=== PATIENT | female | born 1945 | race Caucasian/White ===

== ENCOUNTER 2021-02-12 16:09 | Emergency (ER) | payer MEDICARE, MEDICAID ==
--- NOTE | 2021-02-12 16:15 | EDM.PDOC ---
ED HPI GENERAL MEDICAL PROBLEM - General Chief Complaint: General Stated Complaint: AMBULANCE Time Seen by Provider: 02/12/21 16:33 Source of Information: Reports: Patient History Limitations: Reports: No Limitations - History of Present Illness INITIAL COMMENTS - FREE TEXT/NARRATIVE: 75 y/o F c/o feeling light headed and nauseous since this morning. She states the feeling is worse when walking. She states she walked to the [facility] twice today to try an be seen but was unable to get in. Once she arrived in the ER she developed sudden chest pressure 8/10 nonradiating. Denies fever, cough, chills, drugs, etoh, db, abd pn, recent trauma, extremity pain, vision prob, diff swallowing, constipation, diff voiding. Onset: Today, Sudden Duration: Hour(s): Location: Reports: Head Improves with: Reports: None Worsens with: Reports: None Associated Symptoms: Reports: Other (chest pressure) Headache Pain Score (Numeric/FACES): 7 - Related Data Allergies Allergy/AdvReac Type Severity Reaction Status Date / Time fentanyl Allergy Hives Verified 05/05/18 22:19 Iodinated Contrast Media Allergy Hives Verified 05/05/18 22:18 Penicillins Allergy Hives Verified 05/05/18 22:16 Home Meds: Home Meds RX: Albuterol Sulfate [Proair Hfa] 1 puff INH BID PRN 05/05/18 [History] RX: Aspirin [Halfprin] 81 mg PO DAILY 05/05/18 [History] RX: Fluticasone/Salmeterol [Advair 500-50] 1 puff INH DAILY 05/05/18 [History] RX: Levothyroxine [Synthroid] 50 mcg PO BEDTIME 05/05/18 [History] RX: atorvaSTATin [Lipitor] 20 mg PO ACBREAKFAST 05/05/18 [History] RX: hydroCHLOROthiazide [Hydrochlorothiazide] 12.5 mg PO DAILY 05/05/18 [History] Past Medical History HEENT History: Reports: Hard of Hearing Cardiovascular History: Reports: High Cholesterol, Hypertension Respiratory History: Reports: Asthma, Bronchitis, Recurrent Gastrointestinal History: Reports: GERD, Other (See Below) Other Gastrointestinal History: diverticulitis QUARTER TRIMMER History: Reports: Other QUARTER TRIMMER History: 1 NVD Musculoskeletal History: Reports: Arthritis Neurological History: Reports: Seizure Psychiatric History: Reports: None Endocrine/Metabolic History: Reports: Diabetes, Type II, Hypothyroidism - Infectious Disease History Infectious Disease History: Reports: Chicken Pox, Measles, Mumps, Shingles - Past Surgical History HEENT Surgical History: Reports: Tonsillectomy Respiratory Surgical History: Reports: None GI Surgical History: Reports: None Musculoskeletal Surgical History: Reports: Other (See Below) Other Musculoskeletal Surgeries/Procedures:: torn miniscius right knee Social & Family History - Family History Family Medical History: No Pertinent Family History Cardiac: Reports: High Cholesterol - Caffeine Use Caffeine Use: Reports: None ED ROS GENERAL - Review of Systems Review Of Systems: Comprehensive ROS is negative, except as noted in HPI. ED EXAM, GENERAL - Physical Exam Exam: See Below Exam Limited By: No Limitations General Appearance: Alert, Anxious Eye Exam: Bilateral Eye: PERRL (conjugate gaze) Ears: Normal External Exam, Normal Canal, Hearing Grossly Normal, Normal TMs Nose: Normal Inspection, Normal Mucosa, No Blood Throat/Mouth: Normal Inspection, Normal Lips, Normal Teeth, Normal Gums, Normal Oropharynx, Normal Voice, No Airway Compromise Head: Atraumatic, Normocephalic Neck: Supple, Non-Tender, Other (pt expressed increased light headeness with head turned to the R. R carotid significantly weaker than L) Respiratory/Chest: Lungs Clear, Normal Breath Sounds Cardiovascular: Normal Peripheral Pulses, Regular Rate, Rhythm GI/Abdominal: Soft, Non-Tender (Female) Exam: Deferred Rectal (Female) Exam: Deferred Back Exam: Normal Inspection, Full Range of Motion Extremities: Normal Inspection, Normal Range of Motion, Non-Tender, No Pedal Edema, Normal Capillary Refill Neurological: Alert, Oriented, Normal Cognition Psychiatric: Normal Affect, Normal Mood Skin Exam: Warm, Dry, Intact #1 Interpretation EKG Date: 02/12/21 Time: 16:42 Rhythm: NSR [place]: LAD-Left [place] Deviation P-Wave: Present QRS: Normal ST-T: Normal QT: Normal Course - Vital Signs Last Recorded V/S: Last Vital Signs Temp 99 F 02/12/21 16:03 Pulse 61 02/12/21 16:03 Resp 12 02/12/21 16:03 BP 153/75 H 02/12/21 16:03 Pulse Ox 96 02/12/21 16:03 - Orders/Labs/Meds Orders: Active Orders 24 hr Category Date Time Status Blood Glucose Check, Bedside [RC] ONETIME Care 02/12/21 16:30 Active Peripheral IV Care [RC] . DIRECTED Care 02/12/21 16:31 Active Sodium Chloride 0.9% [Saline Flush] Med 02/12/21 16:31 Active 10 ml FLUSH ASDIRECTED PRN Peripheral IV Insertion Adult [OM.PC] Stat Oth 02/12/21 16:30 Ordered Medication Orders Sodium Chloride (Sodium Chloride 0.9% 10 Ml Syringe) 10 ml FLUSH ASDIRECTED PRN PRN Reason: Keep Vein Open Last Admin: 02/12/21 16:42 Dose: 10 ml Documented by: PRETTY Labs: Laboratory Tests 02/12/21 02/12/21 02/12/21 Range/Units 16:54 16:54 16:54 WBC 8.7 (5.0-10.0) 10^3/uL RBC 4.89 (4.2-5.4) 10^6/uL Hgb 15.1 D (12.0-16.0) g/dL Hct 44.5 (37.0-47.0) % MCV 91.0 (80-100) fL MCH 30.9 (27.0-34.0) pg MCHC 33.9 (33.0-35.0) g/dL Plt Count 271 (150-450) 10^3/uL Neut % (Auto) 61.5 (42.2-75.2) % Lymph % (Auto) 30.4 (20.5-50.1) % [place] % (Auto) 6.6 (2-8) % Eos % (Auto) 1.2 (1.0-3.0) % Baso % (Auto) 0.3 (0.0-1.0) % PT 10.4 (9.0-12.0) SEC INR 1.0 (0.9-1.2) APTT 23.2 (22.0-34.0) SEC Sodium 144 (136-145) mmol/L Potassium 3.3 L (3.5-5.1) mmol/L Chloride 104 (98-107) mmol/L Carbon Dioxide 32 (21-32) mmol/L Anion Gap 11.3 (7-13) mEq/L BUN 14 (7-18) mg/dL Creatinine 0.75 (0.55-1.02) mg/dL Est Cr Clr Drug Dosing 52.79 mL/min Estimated GFR (MDRD) > 60 BUN/Creatinine Ratio 18.7 (No establ ref range) Glucose 77 (70-99) mg/dL Calcium 9.1 (8.5-10.1) mg/dL Phosphorus 2.7 (2.6-4.7) mg/dL Magnesium 2.1 (1.8-2.4) mg/dL Total Bilirubin 0.5 (0.2-1.0) mg/dL AST 42 H (15-37) U/L ALT 62 H (14-59) U/L Alkaline Phosphatase 106 (46-116) U/L Troponin I High Sens 14 (<=51) pg/mL Total Protein 7.4 (6.4-8.2) g/dL Albumin 3.6 (3.4-5.0) g/dL Globulin 3.8 Albumin/Globulin Ratio 0.9 Amylase 39 (25-115) U/L Lipase 133 (73-393) U/L TSH, Ultra Sensitive 1.06 (0.36-3.74) uIU/mL Urine Color (YELLOW) Urine Appearance (CLEAR) Urine pH (5.0-9.0) Ur Specific [place] (1.005-1.030) Urine Protein (NEGATIVE) Urine Glucose (UA) (NEGATIVE) Urine Ketones (NEGATIVE) Urine Occult Blood (NEGATIVE) Urine Nitrite (NEGATIVE) Urine Bilirubin (NEGATIVE) Urine Urobilinogen (0.2-1.0) mg/dL Ur Leukocyte Esterase (NEGATIVE) Urine RBC (0-5) /HPF Urine WBC (0-5/HPF) /HPF Ur Epithelial Cells (NOT SEEN) /HPF Urine Bacteria (0-FEW/HPF) /HPF Urine Mucus (NOT SEEN) /LPF Urine Opiates Screen (NEGATIVE) Ur Oxycodone Screen (NEGATIVE) Urine Methadone Screen (NEGATIVE) Ur Barbiturates Screen (NEGATIVE) U Tricyclic Antidepress (NEGATIVE) Ur Phencyclidine Scrn (NEGATIVE) Ur Amphetamine Screen (NEGATIVE) U Methamphetamines Scrn (NEGATIVE) Urine MDMA Screen (NEGATIVE) U Benzodiazepines Scrn (NEGATIVE) Urine Cocaine Screen (NEGATIVE) U Marijuana (THC) Screen (NEGATIVE) Ethyl Alcohol < 3 (0) mg/dL 02/12/21 02/12/21 Range/Units 17:31 17:31 WBC (5.0-10.0) 10^3/uL RBC (4.2-5.4) 10^6/uL Hgb (12.0-16.0) g/dL Hct (37.0-47.0) % MCV (80-100) fL MCH (27.0-34.0) pg MCHC (33.0-35.0) g/dL Plt Count (150-450) 10^3/uL Neut % (Auto) (42.2-75.2) % Lymph % (Auto) (20.5-50.1) % [place] % (Auto) (2-8) % Eos % (Auto) (1.0-3.0) % Baso % (Auto) (0.0-1.0) % PT (9.0-12.0) SEC INR (0.9-1.2) APTT (22.0-34.0) SEC Sodium (136-145) mmol/L Potassium (3.5-5.1) mmol/L Chloride (98-107) mmol/L Carbon Dioxide (21-32) mmol/L Anion Gap (7-13) mEq/L BUN (7-18) mg/dL Creatinine (0.55-1.02) mg/dL Est Cr Clr Drug Dosing mL/min Estimated GFR (MDRD) BUN/Creatinine Ratio (No establ ref range) Glucose (70-99) mg/dL Calcium (8.5-10.1) mg/dL Phosphorus (2.6-4.7) mg/dL Magnesium (1.8-2.4) mg/dL Total Bilirubin (0.2-1.0) mg/dL AST (15-37) U/L ALT (14-59) U/L Alkaline Phosphatase (46-116) U/L Troponin I High Sens (<=51) pg/mL Total Protein (6.4-8.2) g/dL Albumin (3.4-5.0) g/dL Globulin Albumin/Globulin Ratio Amylase (25-115) U/L Lipase (73-393) U/L TSH, Ultra Sensitive (0.36-3.74) uIU/mL Urine Color Yellow (YELLOW) Urine Appearance Slightly cloudy (CLEAR) Urine pH 7.0 (5.0-9.0) Ur Specific [place] 1.015 (1.005-1.030) Urine Protein Negative (NEGATIVE) Urine Glucose (UA) Negative (NEGATIVE) Urine Ketones Negative (NEGATIVE) Urine Occult Blood Trace-intact H (NEGATIVE) Urine Nitrite Negative (NEGATIVE) Urine Bilirubin Negative (NEGATIVE) Urine Urobilinogen 0.2 (0.2-1.0) mg/dL Ur Leukocyte Esterase Negative (NEGATIVE) Urine RBC 5-10 H (0-5) /HPF Urine WBC 0-5 (0-5/HPF) /HPF Ur Epithelial Cells Rare (NOT SEEN) /HPF Urine Bacteria Rare (0-FEW/HPF) /HPF Urine Mucus Rare (NOT SEEN) /LPF Urine Opiates Screen Negative (NEGATIVE) Ur Oxycodone Screen Negative (NEGATIVE) Urine Methadone Screen Negative (NEGATIVE) Ur Barbiturates Screen Negative (NEGATIVE) U Tricyclic Antidepress Negative (NEGATIVE) Ur Phencyclidine Scrn Negative (NEGATIVE) Ur Amphetamine Screen Negative (NEGATIVE) U Methamphetamines Scrn Negative (NEGATIVE) Urine MDMA Screen Negative (NEGATIVE) U Benzodiazepines Scrn Negative (NEGATIVE) Urine Cocaine Screen Negative (NEGATIVE) U Marijuana (THC) Screen Negative (NEGATIVE) Ethyl Alcohol (0) mg/dL Meds: Medications Generic Name Dose Route Start Last Admin Trade Name Freq PRN Reason Stop Dose Admin Sodium Chloride 10 ml 02/12/21 16:31 02/12/21 16:42 Sodium Chloride 0.9% 10 Ml Syringe FLUSH 10 ml ASDIRECTED PRN Administration Keep Vein Open - Re-Assessments/Exams Free Text/Narrative Re-Assessment/Exam: 02/12/21 19:05 discussed lab, ekg, exam and radiological findings with pt. Explained she needs to follow up with her PCP to have her carotid arteries ultrasounded. Pt understood Departure - Departure Time of Disposition: 19:07 Disposition: Home, Self-Care 01 Condition: Good Clinical Impression: Light-headedness - Discharge Information *PRESCRIPTION DRUG MONITORING PROGRAM REVIEWED*: Not Applicable *COPY OF PRESCRIPTION DRUG MONITORING REPORT IN PATIENT EMMY: Not Applicable Instructions: Dizziness Forms: ED Department Discharge Additional Instructions: Follow up wit your primary care facility to have an ultrasound of your carotid arteries. If any new symptoms or concerns develop contact your primary care facility or return to the ER. Sepsis Event Note (ED) - Focused Exam Vital Signs: Vital Signs Temp Pulse Resp BP Pulse Ox 02/12/21 16:03 99 F 61 12 153/75 H 96
[2021-02-12] MEDS ORDERED: Sodium Chloride 0.9% 10 ML Syringe FLUSH PRN (16:31)
--- NOTE | 2021-02-12 17:08 | CR ---
EXAMINATION: Chest 1V Frontal SEX: Female AGE: 75 years CLINICAL HISTORY: 75-year-old female complaining of chest pain. Comparison exam 05 May 2018. INTERPRETATION: No acute new cardiopulmonary abnormality. 1. Normal cardiac silhouette (size and configuration). Left-sided aortic arch. No mediastinal widening. 2. No pulmonary vascular congestion, cephalization of flow, alveolar edema or dependent pleural fluid (no effusions). 3. No new lung mass, hilar lymphadenopathy, alveolar infiltrate or peripheral "groundglass" interstitial lung densities. 4. No pneumothorax or pneumomediastinum. 5. AP bony thorax unremarkable (external threat monitoring analyst leads and brassiere hardware clip artifacts).
[2021-02-12 17:49] LABS: PTT,PARTIAL THROMBOPLSTIN TIME 23.2 SEC (22.0-34.0)
[2021-02-12 17:53] LABS: ANION GAP 11.3 mEq/L (7-13); CHLORIDE,CL 104 mmol/L (98-107); SODIUM,NA 144 mmol/L (136-145)
[2021-02-12 18:08] LABS: AMPHETAMINES,URINE NEGATIVE (NEGATIVE); BARBITURATES,URINE NEGATIVE (NEGATIVE); BENZODIAZEPINE,URINE NEGATIVE (NEGATIVE); MDMA (ECSTASY), URINE NEGATIVE (NEGATIVE); METHADONE,URINE NEGATIVE (NEGATIVE); METHAMPHETAMINES,URINE NEGATIVE (NEGATIVE); OPIATES,URINE NEGATIVE (NEGATIVE); OXYCODONE,URINE NEGATIVE (NEGATIVE); PHENCYCLIDINE,URINE NEGATIVE (NEGATIVE); TCA,URINE NEGATIVE (NEGATIVE)
--- NOTE | 2021-02-12 18:58 | CT ---
PROCEDURE INFORMATION: Exam: CT Head Without Contrast Exam date and time: 02/12/2021 6:33 PM Age: 75 years old Clinical indication: Other: Positional lightheadedness, weak RT carotid pulse TECHNIQUE: Imaging protocol: Computed tomography of the head without contrast. Sagittal and coronal reformatted images were created and reviewed. Radiation optimization: All CT scans at this facility use at least one of these dose optimization techniques: automated exposure control; mA and/or kV adjustment per patient size (includes targeted exams where dose is matched to clinical indication); or iterative reconstruction. COMPARISON: CT Head wo Cont 05/05/2018 7:23 PM FINDINGS: Brain: No acute intracranial hemorrhage. No acute infarct. No intra-axial or extra-axial masses. Diaz-white matter differentiation is preserved. No cerebral edema. No extra-axial fluid collections. No midline shift. No evidence for Chiari 1 malformation. Cerebral ventricles: No hydrocephalus. Paranasal sinuses: Visualized paranasal sinuses are clear. Mastoid air cells: Mastoid air cells are clear bilaterally. Orbital cavity: Globes and lenses, extraocular muscles, and optic nerves are intact bilaterally. No acute intraorbital abnormality. Vasculature: Atherosclerotic changes in the visualized arteries. 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 Soft tissues: The extracranial soft tissues are unremarkable. IMPRESSION: 1. No acute abnormality of the brain. 2. Incidental/nonacute findings are listed in the report.
== END 2021-02-12 19:27 | disposition home or self-care (01) ==
LOC: DL.ED 16:09
DX: R42 Dizziness and giddiness (principal); E78.00 Pure hypercholesterolemia, unspecified; I10 Essential (primary) hypertension; E03.9 Hypothyroidism, unspecified; E11.9 Type 2 diabetes mellitus without complications; Z79.899 Other long term (current) drug therapy; Z79.82 Long term (current) use of aspirin; Z91.041 Radiographic dye allergy status; Z88.8 Allergy status to other drugs, medicaments and biological substances; Z88.0 Allergy status to penicillin
CPT/HCPCS: 36415; 70450; 71045; 80053; 80305-QW; 80307; 81001; 82150; 82947; 83690; 83735; 84100; 84443; 84484; 85025; 85610; 85730; 93005; 99285-25

== ENCOUNTER 2024-11-08 10:15 | Day surgery (SDC) | payer MEDICARE, MEDICAID ==
[2024-11-08] MEDS ORDERED: Dexamethasone 4 MG/ML SDV IV ONE (10:16)
[2024-11-08] MEDS ORDERED: Midazolam 1 MG/ML 2 ML SDV IV ONE (10:16)
[2024-11-08] MEDS ORDERED: Sodium Chloride 0.9% 10 ML Syringe IV ONE (10:16)
[2024-11-08] MEDS: Proparacaine 0.5% Ophth Soln 15 ML Bottle EYERT ONE ×2 (10:35→11:24)
[2024-11-08] MEDS: Moxifloxacin 0.5% Ophth Soln 3 ML Bottle EYERT ONE (10:36)
[2024-11-08] MEDS: Povidone-Iodine 5% Sterile Ophth Soln 30 ML Bottle EYERT ONE ×2 (10:37→11:25)
[2024-11-08] MEDS: Tropicamide 1% Ophth Soln 15 ML Bottle EYERT ONE (10:38)
[2024-11-08] MEDS: Phenylephrine 10% Ophth Soln 5 ML Bot EYERT PRN (10:38)
[2024-11-08] MEDS: Timolol Maleate 0.5% Ophth Soln 5 ML Bottle EYERT ONE (10:39)
[2024-11-08] MEDS: Cataract Ophth Solution EYERT ONE (10:40)
[2024-11-08] MEDS ORDERED: hydrALAZINE 20 MG/ML SDV ONE (11:16)
[2024-11-08] MEDS: Apraclonidine 0.5% Ophth Soln 5 ML Bot EYERT ONE (11:25)
[2024-11-08] MEDS: Diclofenac Sodium 0.1% Ophth Soln 5 ML Bottle EYERT ONE (11:25)
[2024-11-08] MEDS: Dexamethasone/Neomycin/Polymyxin B Ophth Oint 3.5 GM Tube EYERT ONE (11:26)
[2024-11-08] MEDS: Lidocaine 1% 30 ML SDV ONE (11:26)
[2024-11-08] MEDS: VANCOmycin 500 MG SDV EYERT ONE (11:27)
[2024-11-08] MEDS ORDERED: Acetaminophen/Codeine 300-30 MG Tab PO PRN (11:30)
[2024-11-08] MEDS ORDERED: Ondansetron 4 MG/2 ML SDV IVPUSH PRN (11:30)
[2024-11-08] MEDS ORDERED: VANCOmycin 500 MG SDV EYERT ONE (11:30)
[2024-11-08] MEDS ORDERED: Lidocaine 1% 30 ML SDV INJECT ONE (11:30)
[2024-11-08] MEDS ORDERED: Acetaminophen 325 MG Tab PO PRN (11:30)
[2024-11-08] MEDS ORDERED: Moxifloxacin 0.5% Ophth Soln 3 ML Bottle EYERT ONE (11:30)
== END 2024-11-08 12:20 | disposition home or self-care (01) ==
LOC: DL.SDS 10:15
PROVIDERS: ATTEND Ophthalmology
DX: E11.36 Type 2 diabetes mellitus with diabetic cataract (principal); H25.811 Combined forms of age-related cataract, right eye; I10 Essential (primary) hypertension; E78.5 Hyperlipidemia, unspecified; E03.9 Hypothyroidism, unspecified; Z79.890 Hormone replacement therapy; Z79.899 Other long term (current) drug therapy
CPT/HCPCS: 66984; A9270; J2003; J3370; J1100; J2250; J3490

== ENCOUNTER 2024-12-06 09:09 | Day surgery (SDC) | payer MEDICARE, MEDICAID ==
[2024-12-06] MEDS ORDERED: Acetaminophen 325 MG Tab PO PRN (09:15)
[2024-12-06] MEDS ORDERED: VANCOmycin 500 MG SDV EYELF ONE (09:15)
[2024-12-06] MEDS ORDERED: Lidocaine 1% 30 ML SDV INJECT ONE (09:15)
[2024-12-06] MEDS ORDERED: Acetaminophen/Codeine 300-30 MG Tab PO PRN (09:15)
[2024-12-06] MEDS ORDERED: Ondansetron 4 MG/2 ML SDV IVPUSH PRN (09:15)
[2024-12-06] MEDS: Proparacaine 0.5% Ophth Soln 15 ML Bottle EYELF ONE ×2 (09:31→09:56)
[2024-12-06] MEDS: Moxifloxacin 0.5% Ophth Soln 3 ML Bottle EYELF ONE (09:32)
[2024-12-06] MEDS: Tropicamide 1% Ophth Soln 15 ML Bottle EYELF ONE (09:33)
[2024-12-06] MEDS: Povidone-Iodine 5% Sterile Ophth Soln 30 ML Bottle EYELF ONE ×2 (09:33→09:57)
[2024-12-06] MEDS: Phenylephrine 10% Ophth Soln 5 ML Bot EYELF PRN (09:34)
[2024-12-06] MEDS: Timolol Maleate 0.5% Ophth Soln 5 ML Bottle EYELF ONE (09:35)
[2024-12-06] MEDS: Cataract Ophth Solution EYELF ONE (09:36)
[2024-12-06] MEDS: Diclofenac Sodium 0.1% Ophth Soln 5 ML Bottle EYELF ONE (09:58)
[2024-12-06] MEDS: Apraclonidine 0.5% Ophth Soln 5 ML Bot EYELF ONE (09:58)
[2024-12-06] MEDS: Dexamethasone/Neomycin/Polymyxin B Ophth Oint 3.5 GM Tube EYELF ONE (09:59)
[2024-12-06] MEDS: Lidocaine 1% 30 ML SDV INJECT ONE (09:59)
[2024-12-06] MEDS: VANCOmycin 500 MG SDV EYELF ONE (10:00)
== END 2024-12-06 10:45 | disposition home or self-care (01) ==
LOC: DL.SDS 09:09
PROVIDERS: ATTEND Ophthalmology
DX: H25.812 Combined forms of age-related cataract, left eye (principal)
CPT/HCPCS: A9270-GY; J2003; J3370; J3490

== ENCOUNTER 2025-03-31 11:18 | Emergency (ER) | payer MEDICARE, MEDICAID ==
[2025-03-31] MEDS ORDERED: Sodium Chloride 0.9% 10 ML Syringe FLUSH PRN (11:49)
[2025-03-31 12:04] LABS: BASOPHILS PERCENT AUTO 0.4 % (0.0-1.0); EOSINOPHILS PERCENT AUTO 1.8 % (1.0-3.0); LYMPHOCYTES PERCENT AUTO 31.4 % (20.5-50.1); MONOCYTES PERCENT AUTO 6.7 % (2-8); NEUTROPHILS PERCENT AUTO 59.7 % (42.2-75.2); PLATELET COUNT,PLT 216 10^3/uL (150-450); RED BLOOD CELL COUNT 4.64 10^6/uL (4.2-5.4); WHITE BLOOD CELL COUNT,WBC 7.7 10^3/uL (5.0-10.0)
[2025-03-31 12:04] LABS: APPEARANCE,URINE CLEAR (CLEAR); GLUCOSE,URINE NEGATIVE (NEGATIVE); OCCULT BLOOD,URINE TRACE-INTACT (NEGATIVE)
[2025-03-31 12:18] LABS: EPITHELIAL CELLS,URINE OCCASIONAL /HPF (NOT SEEN)
[2025-03-31 12:22] LABS: A/G RATIO 1.0; ALANINE AMINOTRANSFERASE,ALT 53 U/L (14-59); ASPARTATE AMNIOTRANSFERASE,AST 49 U/L (15-37); BILIRUBIN TOTAL 0.7 mg/dL (0.2-1.0); BLOOD UREA NITROGEN,BUN 11 mg/dL (7-18); CARBON DIOXIDE,CO2 34 mmol/L (21-32); CHLORIDE,CL 106 mmol/L (98-107); CREATININE 0.66 mg/dL (0.55-1.02); GLUCOSE RANDOM 83 mg/dL (70-99); POTASSIUM,K 3.3 mmol/L (3.5-5.1); PROTEIN TOTAL,TP 7.2 g/dL (6.4-8.2); SODIUM,NA 146 mmol/L (136-145)
[2025-03-31 12:23] LABS: INR 1.0 (0.9-1.2); PTT,PARTIAL THROMBOPLSTIN TIME 26.1 SEC (22.0-34.0)
[2025-03-31 12:26] LABS: ESTIMATED GFR 89 mL/min (>=60)
[2025-03-31 13:02] LABS: LACTIC ACID 1.3 mmol/L (0.4-2.0)
[2025-03-31] MEDS: Potassium Chloride 10 MEQ Tab.ER PO ONE (13:19)
== END 2025-03-31 14:20 | disposition home or self-care (01) ==
LOC: DL.ED 11:18
DX: K59.00 Constipation, unspecified (principal); E87.6 Hypokalemia; R31.21 Asymptomatic microscopic hematuria; I10 Essential (primary) hypertension; E78.00 Pure hypercholesterolemia, unspecified; E11.9 Type 2 diabetes mellitus without complications; E03.9 Hypothyroidism, unspecified; J45.909 Unspecified asthma, uncomplicated; Z79.899 Other long term (current) drug therapy; Z79.890 Hormone replacement therapy; Z86.16 Personal history of COVID-19; Z88.0 Allergy status to penicillin; Z88.8 Allergy status to other drugs, medicaments and biological substances; Z91.041 Radiographic dye allergy status; Z90.49 Acquired absence of other specified parts of digestive tract
CPT/HCPCS: 36415; 74019; 80053; 81001; 83605; 83690; 85025; 85610; 85730; 86140; 99284; A9270-GY